=== PATIENT | female | born 1950 | race Caucasian/White ===

== ENCOUNTER 2020-08-12 06:25 | Day surgery (SDC) | payer MEDICARE, BC ==
[~2020-08-12] VITALS: Ht 177.8 cm; Wt 135.0 kg
[~2020-08-12 06:25] MED LIST: BUPROPION HCL100 MG PO; ESOMEPRAZOLE MA40 MG PO; GLIMEPIRIDE4 MG PO; GLUCOPHAGE500 MG PO; LEVOXYL200 MCG PO; METOPROLOL TART25 MG PO; NAPROSYN500 MG PO; SPIRONOLACTONE25 MG PO; TRAZODONE HCL50 MG PO; TUDORZA PRESS400 MCG INH; ZOFRAN ODT4 MG PO; ZOLOFT50 MG PO
--- NOTE | 2020-08-12 08:29 | NUR ---
08/12/20 0829 Kasia Aguilera 0837 PATIENT ARRIVES TO PACU UNRESPONSIVE TO PAIN. ORAL AIRWAY IN PLACE. RESP EVEN AND UNLABORED, MASK AT 6 LITERS.
--- NOTE | 2020-08-12 09:23 | NUR ---
0900 PT BACK TO DS FROM PACU AWAKE AND ALERT DENIES PAIN OR NAUSEA PT TAKING SIPS OF WATER TOLERATES WELL.
--- NOTE | 2020-08-12 09:26 | NUR ---
0925 PT SATS DROP TO 91% WHEN SHE RESTS, O2 PLACED VIA NASAL CANNUAL AT 2L
--- NOTE | 2020-08-12 09:49 | NUR ---
1126 PT EATING CRACKERS TOLERATES WELL. HER FRIEND IS AT BEDSIDE
--- NOTE | 2020-08-12 09:52 | NUR ---
0948 O2 TURNED OFF PT SATS REMAIN ABOVE 95%.
--- NOTE | 2020-08-12 10:19 | OR ---
[facility] [address], [place] [address] Signed DATE OF OPERATION: 08/12/2020 SURGEON: Piero Guerrier MD PREOPERATIVE DIAGNOSIS: Right medial inframammary crease subcutaneous mass. POSTOPERATIVE DIAGNOSIS: Right medial inframammary crease subcutaneous mass. PROCEDURE: Excision of right medial inframammary crease subcutaneous mass. ESTIMATED BLOOD LOSS: None. INDICATIONS: Penny is a 69-year-old obese diabetic female, who has a history of ovarian cancer, uterine cancer, breast cancer and colon cancer. She had a mastectomy at age 38 [address] Gabino Amaral. This was followed by chemotherapy. She did not receive radiation therapy. 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 She has used that right arm extensively without issues. The mammograms of her left breast have been uneventful. However, more recently she noticed a tender indurated mass in the medial side of the right inframammary crease right near the sternum and xiphoid process. The ultrasound was concerning for recurrent cancer. I have been asked to see her expeditiously in the office by the radiologist. I have known Angie for many years. With examined that area. I explained to Angie we could simply extend her previous mastectomy scar and will excise the lesion, full thickness with wide margins for not only pathologic review, but treatment as well. She understands the nature of the surgery along with its risks including, but not limited to bleeding, infection, scarring, change in contour of the skin as well as possible need for additional procedures and or treatments based on pathology results. She had expressed understanding and wished to proceed. DESCRIPTION OF PROCEDURE: I had met with Penny and her friend in our preop area. We also had our nurse present with this. Angie and I could easily identify and palpate the lesion on the medial side of the right inframammary crease. It is quite indurated, but it does not appear attached to the skin of the underlying chest wall. The overlying skin is a little erythematous as well. No other local signs or symptoms of infection. We had marked that Electronically Signed By: PIERO GUERRIER MD 08/12/20 1019 PATIENT NAME: PENNY HERNANDEZ OPERATIVE REPORT DATE OF : 50 REPORT #: [id number] PHYSICIAN: PIERO GUERRIER MD PCP: LUDA DACOSTA PAC REPORT IS CONFIDENTIAL AND NOT TO BE RELEASED WITHOUT AUTHORIZATION [facility] [address], [place] [address] Signed appropriately. Afterwards, Angie was taken in the operating room and placed in the supine position under general LMA anesthesia. She was given preoperative vancomycin because of her previous history of MRSA with joint replacements. She was given subcutaneous heparin and SCDs were utilized. She was then prepped and draped in the usual sterile fashion. After this, we used our 15 blade knife to extend her previous transverse mastectomy incision and we made a wide elliptical incision around the lesion. We went down around the lesion with the help of cautery all the way to the chest wall. The entire lesion was removed en bloc. The specimen was appropriately marked with silk sutures and passed off the field. Local anesthetic was injected into her chest wall and subcutaneous tissues. The wound was irrigated and suctioned out until clear. We developed her skin flaps by raising the fat off her chest wall and upper abdomen with the help of the cautery. We used 2-0 nylon vertical mattress sutures then to bring that wound together. We then used 3-0 subcuticular Monocryl sutures to reapproximate the dermis. The skin edges were reapproximated with a running 5-0 fast absorbing plain gut suture. Dry gauze and tape were then applied. Penny was awakened from her anesthesia, extubated in the OR, and taken to the recovery room in stable condition. Piero Guerrier MD [facility] [place] /[id number] cc: MD Luda Rubalcava PA Copies: PIERO GUERRIER MD ~ Electronically Signed By: PIERO GUERRIER MD 08/12/20 1019 PATIENT NAME: PENNY HERNANDEZ OPERATIVE REPORT DATE OF : 50 REPORT #: [id number] PHYSICIAN: PIERO GUERRIER MD PCP: LUDA DACOSTA PAC REPORT IS CONFIDENTIAL AND NOT TO BE RELEASED WITHOUT AUTHORIZATION
--- NOTE | 2020-08-12 10:25 | NUR ---
1000 PT UP TO BATHROOM WITH MINIMAL ASSIST SHE WAS ABLE TO VOID, THEN REPORTS SHE IS READY TO GO HOME, DISCHARGE INSTRUCTIONS GIVEN TO PT AND FRIEND THEY BOTH VOICED UNDERSTANDING.
--- NOTE | 2020-08-18 11:50 | PATH ---
[facility] [address] [place], [place] [address] Signed THIS IS AN ADDENDUM REPORT SPECIMEN(S): A RIGHT SUBCUTANEOUS CHEST WALL SPECIMEN SOURCE: A. RIGHT SUBCUTANEOUS CHEST WALL CLINICAL HISTORY: Breast cancer, uterine, ovarian, colon CA FINAL PATHOLOGIC DIAGNOSIS: Skin and soft tissue, right subcutaneous chest wall mass, excision: - Epidermoid inclusion cyst. - Dermal and subcutaneous tissue with findings consistent with previously ruptured epidermoid inclusion cyst. - No evidence of malignancy. - See comment. COMMENT: A portion of the patient's medical record was reviewed and the history is noted. Sections demonstrate exuberant dermal and subcutaneous mixed chronic and acute inflammation with foamy histiocytes, foreign body type giant cells, acellular keratin, and focal polarizable foreign material. Focally, an acutely inflamed epidermoid inclusion cyst is present in the dermis superficially adjacent to the dermal/subcutaneous inflammation. The findings in the dermis and subcutaneous tissue are compatible with a previously ruptured epidermoid inclusion cyst. This specimen was extensively sampled and there is no evidence of carcinoma. A PAS/D stain (with appropriately staining controls) on a branch service representative section is negative for fungal organisms. As part of [employer] Quality Improvement Program, this case was reviewed by another member of our pathology staff. NAL:cml:C2NR MICROSCOPIC EXAMINATION: Histologic sections of all submitted blocks are examined by light microscopy. These findings, together with the gross examination, support the pathologic diagnosis. GROSS DESCRIPTION: PATIENT NAME: DEVANTE HERNANDEZ PATHOLOGY DATE OF : 50 REPORT #: [id number] PHYSICIAN: LIGIA STEELE PCP: KYLEE DACOSTA PAC REPORT IS CONFIDENTIAL AND NOT TO BE RELEASED WITHOUT AUTHORIZATION [facility] [address] [place], [place] [address] Signed The specimen, labeled "PB," and designated on the requisition "right subcutaneous chest wall mass," is received in formalin and consists of an oriented portion of yellow-novak fatty tissue (69 g, 8.5 cm medial to lateral, 4.5 cm superior to inferior, and 3.4 cm anterior to posterior) with a short stitch marking the superior aspect a long stitch marking the lateral aspect and a double stitch marking the medial aspect. There is an attached ellipse of pink-novak skin (8.3 cm in length by 2.4 cm in width). The specimen is inked as follows: Blue = superior Green = inferior Black = posterior Red = medial Dodge = lateral The specimen is serially sectioned from lateral to medial into 18 slices to reveal a cystic structure/possible previous biopsy cavity (1.9 x 1.8 x 1.5 cm) in slices 9-12 that abuts the skin and is located 1.0 cm from the inferior margin, 1.3 cm from the superior margin, 1.3 cm from the posterior margin, 2.7 cm from the medial margin inked 3.5 cm from the lateral margin. The cystic area/cavity contains a yellow-novak to hemorrhagic fluid/material. The remaining cut surface shows yellow-novak fatty tissue with no masses or lesions grossly identified. The entire cystic area is submitted. A gross photograph is taken and uploaded into [employer]. C.O.D. Audit Clerk sections are submitted as follows: (A1) slice one, lateral margin, perpendicular sections (A2) slice five (A3) slice seven (A4-A5) slice nine, cystic cavity (A6-A7) slice 10, cystic cavity to closest inferior margin (bisected) (A 8-A9) slice of 10, cystic cavity, closest superior margin (bisected) (A10-A11) slice of novak, cystic cavity, abutting skin (bisected) (A12-A 13) slice 11, cystic cavity, close cysts posterior margin (bisected) (A14) slice 11, cystic cavity to superior skin (bisected) (A15-A16) slice 11, cystic cavity to inferior skin (bisected) (A17-A18) slice 12, cystic cavity, bisected (A19) slice 15 (A20) slice 18, medial margin, perpendicularly sectioned Cold ischemic time: cannot be calculated due to insufficient information The specimen was fixed in formalin for approximately 48 hours. PATIENT NAME: DEVANTE HERNANDEZ PATHOLOGY DATE OF : 50 REPORT #: [id number] PHYSICIAN: LIGIA STEELE PCP: KYLEE DACOSTA PAC REPORT IS CONFIDENTIAL AND NOT TO BE RELEASED WITHOUT AUTHORIZATION [address] [address] Signed AC (under the direct supervision of a pathologist) The Gross Description was prepared using a voice recognition system. The report was reviewed for accuracy; however, sound-alike word errors, addition and/or deletions may occur. If there is any question about this report, please contact Client Services. PERFORMING LABORATORY: The technical component was performed by [facility], [address] [place] [id number] (Fitness And Wellness Director: Clare Cisse MD; CLIA# [id number]). [facility], [address] [address] (CLIA# [id number]). REASON FOR ADDENDUM: To add results of additional testing. ADDENDUM PATHOLOGIC DIAGNOSIS: An AFB stain (with appropriately staining controls) is negative for acid fast bacilli. NAL:cml The technical component was performed by [facility], [address] [place] [id number] (Fitness And Wellness Director: Clare Cisse MD; CLIA# [id number]). Professional interpretation [facility], [address] [address] (CLIA# [id number]). Diagnostician: Tram Montoya MD Pathologist Electronically Signed 08/18/2020 Copies: ~ PATIENT NAME: DEVANTE HERNANDEZ PATHOLOGY DATE OF : 50 REPORT #: [id number] PHYSICIAN: LIGIA STEELE PCP: KYLEE DACOSTA PAC REPORT IS CONFIDENTIAL AND NOT TO BE RELEASED WITHOUT AUTHORIZATION
== END 2020-08-12 10:15 | disposition home or self-care (01) ==
LOC: DS 06:25
PROVIDERS: ATTEND Colon & Rectal Surgery
PROC: 0HBT0ZZ Excision of Right Breast, Open Approach (ICD-10-PCS; principal; 2020-08-12 06:45)
DX: L72.0 Epidermal cyst (principal); E66.9 Obesity, unspecified; E11.9 Type 2 diabetes mellitus without complications; I10 Essential (primary) hypertension; F32.9 Major depressive disorder, single episode, unspecified; F41.9 Anxiety disorder, unspecified; G47.00 Insomnia, unspecified; K21.9 Gastro-esophageal reflux disease without esophagitis; J45.909 Unspecified asthma, uncomplicated; M19.90 Unspecified osteoarthritis, unspecified site; E55.9 Vitamin D deficiency, unspecified; Z85.43 Personal history of malignant neoplasm of ovary; Z90.710 Acquired absence of both cervix and uterus; Z85.038 Personal history of other malignant neoplasm of large intestine; Z90.49 Acquired absence of other specified parts of digestive tract; Z90.11 Acquired absence of right breast and nipple; Z79.899 Other long term (current) drug therapy; Z79.890 Hormone replacement therapy; Z79.84 Long term (current) use of oral hypoglycemic drugs; Z88.8 Allergy status to other drugs, medicaments and biological substances; Z88.0 Allergy status to penicillin; Z88.1 Allergy status to other antibiotic agents; Z91.041 Radiographic dye allergy status; Z91.048 Other nonmedicinal substance allergy status; Z91.012 Allergy to eggs; Z91.013 Allergy to seafood; Z88.7 Allergy status to serum and vaccine; Z86.14 Personal history of Methicillin resistant Staphylococcus aureus infection; Z96.651 Presence of right artificial knee joint
CPT/HCPCS: 00404; 88304; 88312; J1100; J1644; J1885; J2001; J2405; J2704; J3010; J3370; J7060; J7121

== ENCOUNTER 2021-08-06 16:58 | Emergency (ER) | payer MEDICARE, BC ==
[~2021-08-06] VITALS: Ht 177.8 cm; Wt 134.7 kg
[2021-08-06] MEDS ORDERED: FLUCONAZOLE150 MG PO (21:33)
== END 2021-08-06 21:50 | disposition home or self-care (01) ==
LOC: ED 16:58
DX: E11.9 Type 2 diabetes mellitus without complications (principal); Z85.3 Personal history of malignant neoplasm of breast; Z85.43 Personal history of malignant neoplasm of ovary; Z85.038 Personal history of other malignant neoplasm of large intestine; Z85.42 Personal history of malignant neoplasm of other parts of uterus; I10 Essential (primary) hypertension; E03.9 Hypothyroidism, unspecified; G47.00 Insomnia, unspecified; Z87.891 Personal history of nicotine dependence; Z88.0 Allergy status to penicillin; Z91.013 Allergy to seafood; Z88.2 Allergy status to sulfonamides; Z88.7 Allergy status to serum and vaccine; Z91.048 Other nonmedicinal substance allergy status; Z88.5 Allergy status to narcotic agent; Z91.012 Allergy to eggs; Z88.8 Allergy status to other drugs, medicaments and biological substances; Z79.84 Long term (current) use of oral hypoglycemic drugs; Z79.890 Hormone replacement therapy; Z79.899 Other long term (current) drug therapy
CPT/HCPCS: 80048; 81001; 84443; 85025; 99284